=== PATIENT | male | born 1975 | race Caucasian/White ===

== ENCOUNTER 2020-02-18 11:09 | Emergency (ER) | payer SELFPAY ==
[2020-02-18 12:08] LABS: ABSOLUTE BASOPHILS # (AUTO) 0.1 10^3/uL (0.0-0.2); ABSOLUTE EOSINOPHILS # (AUTO) 0.3 10^3/uL (0.0-0.6); ABSOLUTE LYMPHOCYTES (AUTO) 2.8 10^3/uL (0.5-4.7); ABSOLUTE MONOCYTES (AUTO) 0.5 10^3/uL (0.1-1.4); ABSOLUTE NEUT (AUTO) 5.8 10^3/uL (1.7-8.2); BASOPHILS % (AUTO) 0.8 % (0-2); EOSINOPHILS % (AUTO) 2.8 % (0-6); HEMATOCRIT 45.4 % (37.9-51.0); HEMOGLOBIN 15.3 g/dL (13.5-17.0); LYMPHOCYTES % (AUTO) 29.8 % (13-45); MEAN CORPUSCULAR HGB CONC 33.7 g/dL (32.0-36.0); MEAN CORPUSCULAR VOLUME 86 fl (80-97); MONOCYTES % (AUTO) 5.4 % (3-13); PLATELET COUNT 333 10^3/uL (150-450); RED BLOOD COUNT 5.27 10^6/uL (4.35-5.55); RED CELL DISTRIBUTION WIDTH 13.8 % (11.5-14.0); SEGMENTED NEUTROPHILS % (AUTO) 61.2 % (42-78); TOTAL CELLS COUNTED % (AUTO) 100 %; WHITE BLOOD COUNT 9.6 10^3/uL (4.0-10.5)
[2020-02-18 12:31] LABS: ALBUMIN 4.5 g/dL (3.5-5.0); ALKALINE PHOSPHATASE 57 U/L (38-126); ANION GAP 14 (5-19); ASPARTATE AMINO TRANSFERASE 25 U/L (17-59); BILIRUBIN,TOTAL 0.9 mg/dL (0.2-1.3); BLOOD UREA NITROGEN 13 mg/dL (7-20); CALCIUM 10.3 mg/dL (8.4-10.2); CARBON DIOXIDE 22 mmol/L (22-30); CHLORIDE 102 mmol/L (98-107); GLUCOSE 153 mg/dL (75-110); POTASSIUM 4.6 mmol/L (3.6-5.0); TOTAL PROTEIN 7.3 g/dL (6.3-8.2)
--- NOTE | 2020-02-18 12:43 | ER Document Report ---
Entered by YAHIR MOREL SCRIBE 02/18/20 1133 Acting as scribe for:RITA MCCARTHY MD ED Seizure - General Chief Complaint: Seizure Stated Complaint: POSSIBLE SEIZURE Time Seen by Provider: 02/18/20 11:20 Mode of Arrival: Ambulatory Information source: Patient Notes: This 45 year old male patient presents to the emergency department today for a seizure that occurred this morning. 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 He has not had any seizures since. He was put on Keppra 500 mg twice daily. Patient states he might have missed his afternoon dose yesterday but he is not sure. Patient is slightly postictal, unable to recall any very recent events such as what time he went to bed last night. He did not chew his tongue. - Related Data Allergies/Adverse Reactions: Penicillins Allergy (Verified 02/18/20 11:23) Past Medical History - General Information source: Patient - Social History Smoking Status: Unknown if Ever Smoked Cigarette use (# per day): No Frequency of alcohol use: None Drug Abuse: None Lives with: Family Family History: Reviewed & Not Pertinent, CVA - Father had prior history of TIAs Neurological Medical History: Reports: Hx Migraine, Hx Seizures, Other - AVM Psychiatric Medical History: Reports: Hx Schizophrenia Past Surgical History: Reports: Hx Appendectomy Review of Systems - Review of Systems Constitutional: No symptoms reported EENT: No symptoms reported Cardiovascular: No symptoms reported Respiratory: No symptoms reported Gastrointestinal: No symptoms reported Genitourinary: No symptoms reported Male Genitourinary: No symptoms reported Musculoskeletal: No symptoms reported Skin: No symptoms reported Hematologic/Lymphatic: No symptoms reported Neurological/Psychological: See HPI, Seizure -: Yes All other systems reviewed and negative Physical Exam - Vital signs Vitals: Pulse Ox 94 02/18/20 11:15 - Notes Notes: Physical Exam: General: Alert, appears well. HEENT: Normocephalic. Atraumatic. PERRL. Extraocular movements intact. Oropharynx clear. No nystagmus. Neck: Supple. Non-tender. Respiratory: No respiratory distress. Clear and equal breath sounds bilaterally. Cardiovascular: Regular rate and rhythm. Abdominal: Normal Inspection. Non-tender. No distension. Normal Bowel Sounds. Back: No gross abnormalities. Extremities: Moves all four extremities. Upper extremities: Normal inspection. Normal ROM. Lower extremities: Normal inspection. No edema. Normal ROM. Neurological: Normal speech. Normal cognition with the exception of very recent memory, cannot remember what time he went to bed last night. Psychological: Normal affect. Normal Mood. Skin: Warm. Dry. Normal color. Course - Re-evaluation Re-evalutation: 02/18/20 13:42 Patient is now alert and oriented. He recalls feeling fine last night before he went to bed. There is a possibility he may have missed a dose of Keppra. He will be given a dose now and is to take his evening dose on schedule tonight. He should follow-up with his neurologist and check on the Keppra level in a few days. Keppra levels at this institution are send out so it will be a few days before a result will be back. - Vital Signs Vital signs: Temp Pulse Resp BP Pulse Ox 98.8 F 24 H 121/84 94 02/18/20 11:23 02/18/20 11:17 02/18/20 11:17 02/18/20 11:17 - Laboratory Results Result Diagrams: 02/18/20 11:15 02/18/20 11:15 Laboratory Results Interpreted: 02/18/20 11:15 Glucose 153 H Calcium 10.3 H Critical Laboratory Results Reviewed: No Critical Results - Radiology Results Critical Radiology Results Reviewed: No Critical Results - EKG Interpretation by Me EKG shows normal: Sinus rhythm, [facility], Intervals, QRS Complexes. abnormal: ST-T Waves - Early repolarization pattern Rate: Normal - 95 Rhythm: NSR When compared to previous EKG there are: No significant change Discharge - Discharge Clinical Impression: Seizure, AVM (arteriovenous malformation) brain Condition: Stable Disposition: HOME, SELF-CARE Additional Instructions: Seizure, Known Epileptic You have had a seizure. Seizures may "break through" in an epileptic due t o stress of infection or injury, a change in blood chemistry, or drug and alcohol use. Another common cause is failure to take medication as prescribed. Your doctor has evaluated your situation for the likely cause of this seizure. It is important that you follow his advice concerning any medication changes and follow-up care. Further testing of anti-seizure medication levels in your blood may be necessary. If you have a [employer] driver's license, it's important that you DO NOT DRIVE until given permission by your physician. This seizure must be reported to the [employer] driver's license bureau. Call the doctor or return if seizures recur, or if new or unusual symptoms arise -- such as severe headache, confusion, excessive sleepiness, local weakness or numbness, neck stiffness, or fever. Be sure you do not miss any doses of your Keppra. Get plenty of rest drink plenty of fluids today. Call your neurologist tomorrow to report your seizure and to let him know a Kepp ra level was drawn and should be available in the next 2 to 3 days. RETURN TO THE EMERGENCY ROOM IF ANY NEW OR WORSENING SYMPTOMS. I personally performed the services described in the documentation, reviewed and edited the documentation which was dictated to the scribe in my presence, and it accurately records my words and actions.
[2020-02-18] MEDS ORDERED: LEVETIRACETAM 500 MG TABLET PO ONE (13:41)
[2020-02-18 14:10] VITALS: BP 137/92
--- NOTE | 2020-02-19 00:23 | EKG REPORT ---
SEVERITY:- NORMAL ECG - SINUS RHYTHM : Confirmed by: Brendan Chanel 19-Feb-2020 00:23:02
== END 2020-02-18 14:10 | disposition home or self-care (01) ==
LOC: ER 11:09
DX: G40.909 Epilepsy, unspecified, not intractable, without status epilepticus (principal); Q28.2 Arteriovenous malformation of cerebral vessels
CPT/HCPCS: 36415; 80053; 80177; 83735; 85025; 93005; 93010; 99284